=== PATIENT | male | born 1955 | race Caucasian/White ===

== ENCOUNTER 2020-04-21 08:16 | Emergency (ER) | payer BC ==
[~2020-04-21] VITALS: Ht 188 cm; Wt 116.8 kg
[~2020-04-21 08:16] MED LIST: AMLO10TA8 PO; CHLO25TA PO; DIAZ5TAB PO; ESCI20TA PO; ESCI5TAB PO; ESCI5TAB7 PO; ESSENTIAL OILS PO; GABA300C10 PO; IBUP200C8 PO; LISI2.5T PO; LISI40TA PO; METH4TAB2 PO; METH750T2 PO; MULT-717 PO; OXYC1TAB7 PO; TAMS-11 PO; [UNRECOGNIZED DRUG - OTHER] PO
--- NOTE | 2020-04-21 08:41 | NUR ---
md is at the bedside for assessment
[2020-04-21] MEDS ORDERED: SODIUM CHLORIDE FLUSH 10ML SYR IVF ONE (09:00)
[2020-04-21] MEDS ORDERED: DILTIAZEM 5 MG/ML, 5ML ONE (09:00)
[2020-04-21] MEDS ORDERED: ASPIRIN 81 MG TABLET CHEW ONE (09:00)
[2020-04-21] MEDS ORDERED: DILTIAZEM 5 MG/ML, 5ML IVPush ONE (09:00)
[2020-04-21 09:30] LABS: BASOPHILS # (AUTO) 0.03 x10^3/uL (0-0.1); BASOPHILS % (AUTO) 0 % (0-1); EOSINOPHILS # (AUTO) 0.22 x10^3/uL (0-0.4); EOSINOPHILS % (AUTO) 2 % (1-7); LYMPHOCYTES # (AUTO) 1.53 x10^3/uL (1-3.4); LYMPHOCYTES % (AUTO) 17 % (22-44); MD NO; MEAN CORPUSCULAR HEMOGLOBIN 31.3 pg (27.5-34.5); MEAN CORPUSCULAR HGB CONC 33.8 g/dL (33.2-36.2); MEAN PLATELET VOLUME 8.6 fL (7.4-10.4); MONOCYTES # (AUTO) 0.93 x10^3/uL (0.2-0.8); MONOCYTES % (AUTO) 10 % (2-9); NEUTROPHILS # (AUTO) 6.47 x10^3/uL (1.8-6.8); NEUTROPHILS % (AUTO) 71 % (42-75); PLATELET COUNT 237 x10^3/uL (130-400); RED BLOOD COUNT 5.09 x10^6/uL (4.38-5.82)
[2020-04-21] MEDS ORDERED: SODIUM CHLORIDE 0.9%, 500ML IVBOLUS ONE (09:30)
[2020-04-21 09:40] LABS: ALANINE AMINOTRANSFERASE 33 U/L (12-78); ALBUMIN 3.5 g/dL (3.4-5.0); ANION GAP 9 mmol/L (5-15); CHLORIDE 109 mmol/L (98-107)
[2020-04-21 09:45] LABS: ALKALINE PHOSPHATASE 105 U/L (45-117); BILIRUBIN,TOTAL 0.3 mg/dL (0.2-1.0); TOTAL PROTEIN 7.4 g/dL (6.4-8.2); TROPONIN I < 0.015 ng/mL (0.000-0.045)
--- NOTE | 2020-04-21 10:39 | NUR ---
CARDIOLOGY IS AT THE BEDSIDE FOR CONSULT
[2020-04-21] MEDS ORDERED: APIXABAN 5 MG TABLET ONE (10:53)
[2020-04-21] MEDS ORDERED: METOPROLOL TARTRATE 50 MG TAB ONE (10:53)
[2020-04-21] MEDS ORDERED: APIXABAN 5 MG TABLET PO ONE (11:00)
[2020-04-21] MEDS ORDERED: METOPROLOL TARTRATE 50 MG TAB PO ONE (11:00)
[2020-04-21 11:03] VITALS: BP 105/68
[2020-05-30] MEDS ORDERED: METO50TA82 PO (10:54)
[2020-05-30] MEDS ORDERED: APIX5TAB PO (10:54)
[2020-05-30] MEDS ORDERED: PREG150C PO (10:56)
[2020-05-30] MEDS ORDERED: ATOR10TA9 PO (10:57)
== END 2020-04-21 11:05 | disposition home or self-care (01) ==
LOC: ED 09:04
DX: I48.92 Unspecified atrial flutter (principal); I95.9 Hypotension, unspecified; R00.0 Tachycardia, unspecified; I45.10 Unspecified right bundle-branch block; I10 Essential (primary) hypertension
CPT/HCPCS: 36415; 80053; 83735; 84443; 84484; 85025; 93005; 96360; 99284; J7040

== ENCOUNTER 2020-08-01 09:05 | Outpatient (CLI) | payer MEDICARE, BC | END 2020-08-01 23:59 | disposition home or self-care (01) | LOC: CFH 09:05 | PROVIDERS: ATTEND Nurse Practitioner Family | DX: I48.0 Paroxysmal atrial fibrillation (principal); I08.8 Other rheumatic multiple valve diseases; I45.10 Unspecified right bundle-branch block; I10 Essential (primary) hypertension | CPT/HCPCS: 78452; 93017; 93306; A9502; J2785 ==

== ENCOUNTER → 2020-08-01 | Outpatient (CLI) | payer MEDICARE, BC ==
[~2020-08-01] MED LIST changes: +APIX5TAB PO; +ATOR10TA9 PO; +METO50TA82 PO; +PREG150C PO
== END | disposition home or self-care (01) ==
LOC: STAR 11:44
PROVIDERS: ATTEND Anesthesiology
DX: Z01.812 Encounter for preprocedural laboratory examination (principal); Z20.828 Contact with and (suspected) exposure to other viral communicable diseases
CPT/HCPCS: 36415; 87635

== ENCOUNTER 2020-08-05 05:48 | Inpatient (IN) | payer BC, MEDICARE ==
[~2020-08-05] VITALS: Ht 188 cm; Wt 116.0 kg
[2020-08-05] MEDS ORDERED: FENTANYL PF 250 MCG/5ML ONE (06:18)
[2020-08-05] MEDS ORDERED: MIDAZOLAM 1 MG/ML, 2ML ONE (06:18)
[2020-08-05] MEDS ORDERED: GLUC1CAP18 PO (06:24)
[2020-08-05 06:25] VITALS: BP 131/87
[2020-08-05] MEDS ORDERED: ACETAMINOPHEN 500 MG TABLET PO STA (06:30)
[2020-08-05] MEDS ORDERED: CHLORHEXIDINE 15 ML UDC MM STA (06:31)
[2020-08-05] MEDS ORDERED: LACTATED RINGERS 1,000 ML IV ONE (06:31)
[2020-08-05] MEDS ORDERED: LIDOCAINE PF 2%, 5ML ONE (07:10)
[2020-08-05] MEDS ORDERED: hydrALAzine 20 MG/ML, 1ML ONE (07:10)
[2020-08-05] MEDS ORDERED: PROMETHAZINE 25 MG/ML, 1ML IVPush PRN (08:00)
[2020-08-05] MEDS ORDERED: OXYcodone 5 MG/5 ML ORAL.SOL UDC PO PRN (08:00)
[2020-08-05] MEDS ORDERED: METOPROLOL 1 MG/ML, 5ML IV PRN (08:00)
[2020-08-05] MEDS ORDERED: hydrALAzine 20 MG/ML, 1ML IV PRN (08:00)
[2020-08-05] MEDS ORDERED: LORazepam 2 MG/ML, 1ML IVPush PRN (08:00)
[2020-08-05] MEDS ORDERED: LABETALOL 5MG/ML, 20ML IV PRN (08:00)
[2020-08-05] MEDS ORDERED: PROMETHAZINE 25 MG SUPP PR PRN (08:00)
[2020-08-05] MEDS ORDERED: ONDANSETRON 2MG/ML, 2ML IVPush PRN (08:00)
[2020-08-05] MEDS ORDERED: ROPIvacaine/PF 0.2%, 100ML 550 ML (check volume) INJ ONE (08:00)
[2020-08-05] MEDS ORDERED: MEPERIDINE/PF 25MG/0.5ML IVPush PRN (08:00)
[2020-08-05] MEDS ORDERED: HYDROmorphone 1 MG/ML, 1ML INJ IVPush PRN (08:00)
[2020-08-05] MEDS ORDERED: PROPOFOL 10 MG/ML, 20ML ONE (08:43)
[2020-08-05] MEDS ORDERED: ROPIvacaine/PF 0.2%, 20 ML ONE (08:43)
[2020-08-05] MEDS ORDERED: BUPIVACAINE/PF 0.25% ONE (08:43)
[2020-08-05] MEDS ORDERED: SUCCINYLCHOLINE 20 MG/ML, 10ML ONE (08:43)
[2020-08-05] MEDS ORDERED: CEFAZOLIN 1,000 MG ONE (08:43)
[2020-08-05] MEDS ORDERED: ONDANSETRON 2MG/ML, 2ML ONE (08:43)
[2020-08-05] MEDS ORDERED: NEOSTIGMINE 1 MG/ML, 10ML ONE (08:43)
[2020-08-05] MEDS ORDERED: GLYCOPYRROLATE 0.2MG/1ML, 5ML ONE (08:43)
[2020-08-05] MEDS ORDERED: ROCURONIUM 10MG/ML,5ML ONE (08:43)
[2020-08-05] MEDS ORDERED: DEXAMETHASONE 4 MG/ML, 1ML ONE (08:43)
[2020-08-05] MEDS ORDERED: TRANEXAMIC ACID 100 MG/ML, 10ML ONE (09:38)
[2020-08-05] MEDS ORDERED: OXYcodone 5 MG/5 ML ORAL.SOL UDC ONE (10:11)
[2020-08-05] MEDS ORDERED: FENTANYL PF 100 MCG/2ML ONE ×2 (10:11→10:50)
[2020-08-05] MEDS: FENTANYL PF 100 MCG/2ML IV PRN ×3 (10:23→10:50)
[2020-08-05] MEDS ORDERED: KETOROLAC 30 MG/1 ML ONE (11:48)
[2020-08-05] MEDS ORDERED: KETOROLAC 30 MG/1 ML IVPush SCH (12:00)
== END 2020-08-05 15:16 | disposition home or self-care (01) | DRG 469 ==
LOC: ORIP 05:48 → 4NE 12:27
PROVIDERS: ADMIT Orthopaedic Surgery Foot and Ankle Surgery; ATTEND Orthopaedic Surgery Foot and Ankle Surgery
PROC: 0SPJ04Z Removal of Internal Fixation Device from Left Tarsal Joint, Open Approach (ICD-10-PCS; 2020-08-05)
PROC: 0SRG0JZ Replacement of Left Ankle Joint with Synthetic Substitute, Open Approach (ICD-10-PCS; principal; 2020-08-05 07:00)
DX: M19.072 Primary osteoarthritis, left ankle and foot (principal)
CPT/HCPCS: 76000; 93005; G0378; J0690; J1100; J1885; J2250; J2405; J2704; J2710; J2795; J3010; J3490; C1776; J0330; J0360; J7120

== ENCOUNTER 2020-12-16 20:55 | Emergency (ER) | payer BC, MEDICARE ==
[~2020-12-16] VITALS: Ht 188 cm; Wt 124.0 kg
[~2020-12-16 20:55] MED LIST changes: +AMLO-211 PO; -AMLO10TA8 PO; -ESCI20TA PO; +ESCI20TA5 PO; -ESCI5TAB PO; +ESCI5TAB25 PO; +GLUC1CAP18 PO
--- NOTE | 2020-12-16 21:36 | NUR ---
PT HAS HISTORY OF AFLUTTER, PT STATES THE FIRST TIME HE HAD IT HE WAS CARDIOVERTED OUT OF IT AND SINCE THEN HAS BEEN ON MEDICATIONS AND HASNT HAD ANY ISSUES UNTIL NOW. PT STATES HAVING SOB AND DISCOMFORT IN CHEST BEGINING AROUND 1999 TONGIHT AFTER DINNER. PIV ESTABLISHED, ERP AT BEDSIDE FOR EVAL. PT ON ALL MONITORS
[2020-12-16] MEDS ORDERED: DILTIAZEM 5 MG/ML, 5ML ONE (21:55)
[2020-12-16] MEDS ORDERED: DILTIAZEM 5 MG/ML, 5ML IVPush ONE ×2 (22:00→23:00)
[2020-12-16 22:16] LABS: BASOPHILS % (AUTO) 1 % (0-1); EOSINOPHILS % (AUTO) 4 % (1-7); LYMPHOCYTES % (AUTO) 21 % (22-44); MEAN CORPUSCULAR HEMOGLOBIN 31.5 pg (27.5-34.5); MEAN PLATELET VOLUME 8.7 fL (7.4-10.4); MONOCYTES % (AUTO) 10 % (2-9); NEUTROPHILS % (AUTO) 64 % (42-75); PLATELET COUNT 233 x10^3/uL (130-400); RED BLOOD COUNT 5.07 x10^6/uL (4.38-5.82); RED CELL DISTRIBUTION WIDTH 13.2 % (9.4-14.8)
[2020-12-16 22:24] LABS: ALBUMIN 3.6 g/dL (3.4-5.0); ANION GAP 7 mmol/L (5-15); CALCIUM 9.3 mg/dL (8.5-10.1); CHLORIDE 106 mmol/L (98-107); CREATININE 1.09 mg/dL (0.7-1.3)
[2020-12-16 22:33] LABS: TROPONIN I < 0.015 ng/mL (0.000-0.045)
[2020-12-16 22:34] LABS: MD NO
--- NOTE | 2020-12-16 22:45 | NUR ---
pt given 2nd 10 mg cardizem dose at 2243, per dr. adames. pt on all monitors, awaiting lab results, no needs at this time per patient
[2020-12-16] MEDS ORDERED: PROPOFOL 10 MG/ML, 20ML ONE (23:44)
[2020-12-17] MEDS ORDERED: PROPOFOL 10 MG/ML, 20ML IVPush ONE
--- NOTE | 2020-12-17 00:14 | NUR ---
pt succesfully cardioverted, see paper chart for vitals and recovery score. 100 mg propofol administered and 100 mg propofol wasted with aditi muñoz
[2020-12-17 00:17] VITALS: BP 111/69
--- NOTE | 2020-12-17 00:24 | NUR ---
pt states feeling much better, no more sob or any symptoms prior to coming in. pt's driving him home
== END 2020-12-17 00:46 | disposition home or self-care (01) ==
LOC: ED 12-17 00:08
DX: I48.0 Paroxysmal atrial fibrillation (principal); Z20.822 Contact with and (suspected) exposure to COVID-19; R00.2 Palpitations; R42 Dizziness and giddiness; I45.10 Unspecified right bundle-branch block; I11.9 Hypertensive heart disease without heart failure; I48.91 Unspecified atrial fibrillation; E78.00 Pure hypercholesterolemia, unspecified
CPT/HCPCS: 36415; 71045; 80048; 82040; 83735; 83880; 84443; 84484; 85025; 87635; 92960; 93005; 96366; 96374; 96375; 96376; 99285

== ENCOUNTER 2021-02-04 11:10 | Inpatient (IN) | payer BC, MEDICARE ==
[~2021-02-04] VITALS: Ht 188 cm; Wt 122.9 kg
[~2021-02-04 11:10] MED LIST changes: -ESCI20TA5 PO; +ESCI20TA8 PO; -ESCI5TAB25 PO; +ESCI5TAB8 PO; -LISI40TA PO; +LISI40TA9 PO; +METH-640 PO; -METH750T2 PO
[2021-02-04] MEDS ORDERED: HYDROmorphone 1 MG/ML, 1ML INJ ONE (11:42)
[2021-02-04] MEDS: HYDROmorphone 2 MG/ML, 1ML IVPush PRN ×5 (11:44→20:01)
--- NOTE | 2021-02-04 11:53 | NUR ---
PIV PLACED, LABS DRAWN AND COLLECTED BY SUPPLIER MANAGER. PT PROVIDE URINE SAMPLE. UA COLLECTED BY SUPPLIER MANAGER. PT CONNECTED TO MONITORING. CALL LIGHT IN REACH. MEDS ADMIN PER
--- NOTE | 2021-02-04 11:55 | NUR ---
PT PLACED ON OXYGEN FOR SAFETY AFTER PAIN MEDS.
[2021-02-04] MEDS ORDERED: SODIUM CHLORIDE FLUSH 10ML SYR IVF ONE (12:00)
[2021-02-04 12:04] LABS: BASOPHILS % (AUTO) 1 % (0-1); EOSINOPHILS % (AUTO) 0 % (1-7); LYMPHOCYTES % (AUTO) 10 % (22-44); MEAN CORPUSCULAR HEMOGLOBIN 31.6 pg (27.5-34.5); MEAN CORPUSCULAR HGB CONC 34.9 g/dL (33.2-36.2); MEAN PLATELET VOLUME 8.7 fL (7.4-10.4); MONOCYTES % (AUTO) 10 % (2-9); NEUTROPHILS % (AUTO) 78 % (42-75); PLATELET COUNT 213 x10^3/uL (130-400); RED BLOOD COUNT 5.29 x10^6/uL (4.38-5.82); RED CELL DISTRIBUTION WIDTH 13.6 % (9.4-14.8)
[2021-02-04 12:04] LABS: MICROSCOPIC AUTO
[2021-02-04 12:05] LABS: MD NO
[2021-02-04 12:32] LABS: ALANINE AMINOTRANSFERASE 27 U/L (12-78); ALBUMIN 3.5 g/dL (3.4-5.0); ANION GAP 8 mmol/L (5-15); CALCIUM 8.9 mg/dL (8.5-10.1); CHLORIDE 104 mmol/L (98-107); CREATININE 0.99 mg/dL (0.7-1.3)
[2021-02-04 12:35] LABS: ALKALINE PHOSPHATASE 84 U/L (45-117); BILIRUBIN,TOTAL 1.8 mg/dL (0.2-1.0); TOTAL PROTEIN 7.6 g/dL (6.4-8.2)
--- NOTE | 2021-02-04 12:35 | NUR ---
SECOND PIV PLACE, D/T FIRST PIV FLOW IS SLUGGISH.
--- NOTE | 2021-02-04 12:49 | NUR ---
PT AT CT
[2021-02-04] MEDS ORDERED: OMNIPAQUE 350 MG/ML, 100ML BOTTLE ONE (12:54)
--- NOTE | 2021-02-04 13:17 | NUR ---
PT BACK FROM CT. PT RESTING COMFORTABLY ON GURNEY. SHARRI. AT BEDSIDE.
--- NOTE | 2021-02-04 13:24 | NUR ---
ALL RESULTS ARE BACK AT THIS TIME. CHART UP FOR RECHECK.
--- NOTE | 2021-02-04 13:28 | NUR ---
ERP AT BEDSIDE TO UPDATE PT ON POC. PT TO BE ADMIT.
[2021-02-04] MEDS ORDERED: PIPERACILLIN/TAZO/PMX 4.5GM 100 ML IVPB ONE (13:30)
--- NOTE | 2021-02-04 13:49 | NUR ---
MED REQUESTED FROM PHARMACY. ERMD STATES NO NEED FOR BLOOD CX PRIOR TO ABX ADMIN.
--- NOTE | 2021-02-04 13:55 | NUR ---
HOSPITALIST AT BEDSIDE.
[2021-02-04] MEDS ORDERED: SODIUM CHLORIDE 0.9% 1,000 ML IV ONE (14:00)
[2021-02-04] MEDS ORDERED: SODIUM CHLORIDE 0.9% 1,000ML IVBOLUS ONE ×2 (14:00→14:30)
[2021-02-04] MEDS ORDERED: SODIUM CHLORIDE FLUSH 10ML SYR IVF PRN (14:00)
--- NOTE | 2021-02-04 14:08 | NUR ---
HOSPITALIST ORDERED BLOOD CULTURE X2. LAB AT BEDSIDE.
--- NOTE | 2021-02-04 14:17 | NUR ---
TASK RN: IV FLUIDS INFUSING PER MAR.
--- NOTE | 2021-02-04 14:20 | NUR ---
REPORT GIVEN TO OH SALINAS. PT RTG TO ROOM [id number]
[2021-02-04] MEDS ORDERED: PROMETHAZINE 25 MG/ML, 1ML IM PRN (14:30)
[2021-02-04] MEDS ORDERED: DOCUSATE 100 MG CAPSULE PO PRN (14:30)
[2021-02-04] MEDS ORDERED: MELATONIN 5 MG TABLET PO PRN (14:30)
[2021-02-04] MEDS ORDERED: POLYETHYLENE GLYCOL 17 GM PACKET PO PRN (14:30)
[2021-02-04] MEDS ORDERED: hydrALAzine 20 MG/ML, 1ML IVPush PRN (14:30)
[2021-02-04] MEDS ORDERED: LABETALOL 5MG/ML, 20ML IVPush PRN (14:30)
[2021-02-04] MEDS ORDERED: ONDANSETRON 2MG/ML, 2ML IVPush PRN (14:30)
[2021-02-04] MEDS ORDERED: PIPERACILLIN/TAZO/PMX 3.375GM 50 ML IV SCH (14:30)
[2021-02-04] MEDS ORDERED: CYCLOBENZAPRINE 10 MG TABLET PO PRN (14:30)
--- NOTE | 2021-02-04 14:55 | NUR ---
SPOKE WITH PHARMACY ABOUT ABX, WILL PROCESS AND SEND.
--- NOTE | 2021-02-04 15:04 | NUR ---
Report from BRAD Robles.
--- NOTE | 2021-02-04 15:09 | NUR ---
REPORT GIVEN TO CORINA SALINAS. PT RTG TO ROOM 503. RN AWARE OF ABX TO BE RECEIVED FROM PHARMACY.
--- NOTE | 2021-02-04 15:12 | NUR ---
PHARMACY NOTIFIED TO SEND ZOSYN TO ROOM 503
[2021-02-04] MEDS ORDERED: POTASSIUM CHLORIDE 40 MEQ in SODIUM CHLORIDE 0.9% 500 ML IV ONE (16:00)
[2021-02-04] MEDS: ENOXAPARIN 40 MG/0.4 ML SQ SCH (16:47)
[2021-02-04] MEDS: PIPERACILLIN/TAZO/PMX 3.375GM 50 ML IV SCH ×2 (17:16→21:30)
[2021-02-04 17:23] VITALS: BP 152/95
[2021-02-04] MEDS: PREGABALIN 150 MG CAPSULE PO SCH (20:01)
[2021-02-04] MEDS: METOPROLOL TARTRATE 50 MG TAB PO SCH (20:01)
[2021-02-04 20:20] VITALS: BP 128/84
[2021-02-04] MEDS ORDERED: ATORVASTATIN 10 MG TABLET PO SCH (21:00)
[2021-02-04] MEDS: POTASSIUM CHLORIDE 20 MEQ in LACTATED RINGERS 1,000 ML IV SCH (21:30)
[2021-02-05] MEDS: HYDROmorphone 2 MG/ML, 1ML IVPush PRN ×8 (02:39→21:36)
[2021-02-05 02:41] VITALS: BP 109/71
[2021-02-05] MEDS: PIPERACILLIN/TAZO/PMX 3.375GM 50 ML IV SCH ×4 (03:05→21:35)
[2021-02-05 05:00] LABS: BASOPHILS % (AUTO) 1 % (0-1); EOSINOPHILS % (AUTO) 3 % (1-7); LYMPHOCYTES % (AUTO) 11 % (22-44); MEAN CORPUSCULAR HEMOGLOBIN 31.6 pg (27.5-34.5); MEAN CORPUSCULAR HGB CONC 34.4 g/dL (33.2-36.2); MEAN PLATELET VOLUME 8.7 fL (7.4-10.4); MONOCYTES % (AUTO) 11 % (2-9); NEUTROPHILS % (AUTO) 75 % (42-75); PLATELET COUNT 185 x10^3/uL (130-400); RED CELL DISTRIBUTION WIDTH 13.5 % (9.4-14.8)
[2021-02-05 05:15] LABS: MD NO
[2021-02-05] MEDS: POTASSIUM CHLORIDE 20 MEQ in LACTATED RINGERS 1,000 ML IV SCH (06:04)
[2021-02-05 07:33] VITALS: BP 121/76
[2021-02-05] MEDS: TAMSULOSIN 0.4 MG CAP.ER.24H PO SCH (08:45)
[2021-02-05] MEDS: PREGABALIN 150 MG CAPSULE PO SCH ×2 (08:45→20:10)
[2021-02-05] MEDS: ESCITALOPRAM 10MG TABLET PO SCH (08:45)
[2021-02-05] MEDS: SENNA/DOCUSATE TABLET PO SCH (08:45)
[2021-02-05] MEDS: METOPROLOL TARTRATE 50 MG TAB PO SCH ×2 (08:45→20:11)
[2021-02-05 12:56] VITALS: BP 123/79
[2021-02-05] MEDS: ENOXAPARIN 40 MG/0.4 ML SQ SCH (16:00)
[2021-02-05 20:03] VITALS: BP 125/82
[2021-02-06 01:00] VITALS: BP 114/68
[2021-02-06] MEDS: HYDROmorphone 2 MG/ML, 1ML IVPush PRN ×6 (01:00→20:27)
[2021-02-06] MEDS: PIPERACILLIN/TAZO/PMX 3.375GM 50 ML IV SCH ×4 (04:48→22:39)
[2021-02-06 07:00] VITALS: BP 134/87
[2021-02-06] MEDS: TAMSULOSIN 0.4 MG CAP.ER.24H PO SCH (08:53)
[2021-02-06] MEDS: SENNA/DOCUSATE TABLET PO SCH (08:53)
[2021-02-06] MEDS: ESCITALOPRAM 10MG TABLET PO SCH (08:53)
[2021-02-06] MEDS: METOPROLOL TARTRATE 50 MG TAB PO SCH ×2 (08:54→20:28)
[2021-02-06] MEDS: PREGABALIN 150 MG CAPSULE PO SCH ×2 (08:54→20:28)
[2021-02-06] MEDS: ENOXAPARIN 40 MG/0.4 ML SQ SCH (16:00)
[2021-02-06 16:28] VITALS: BP 135/85
[2021-02-06 19:10] VITALS: BP 132/84
[2021-02-06 20:19] VITALS: BP 136/82
[2021-02-07 01:29] VITALS: BP 123/85
[2021-02-07] MEDS: HYDROmorphone 2 MG/ML, 1ML IVPush PRN ×6 (01:39→22:23)
[2021-02-07] MEDS: PIPERACILLIN/TAZO/PMX 3.375GM 50 ML IV SCH ×4 (05:14→22:23)
[2021-02-07 07:37] VITALS: BP 132/80
[2021-02-07] MEDS: SENNA/DOCUSATE TABLET PO SCH (08:59)
[2021-02-07] MEDS: PREGABALIN 150 MG CAPSULE PO SCH ×2 (08:59→20:28)
[2021-02-07] MEDS: ESCITALOPRAM 10MG TABLET PO SCH (08:59)
[2021-02-07] MEDS: TAMSULOSIN 0.4 MG CAP.ER.24H PO SCH (09:00)
[2021-02-07] MEDS: METOPROLOL TARTRATE 50 MG TAB PO SCH ×2 (09:00→20:28)
[2021-02-07 11:03] LABS: BASOPHILS % (AUTO) 1 % (0-1); EOSINOPHILS % (AUTO) 5 % (1-7); LYMPHOCYTES % (AUTO) 14 % (22-44); MEAN CORPUSCULAR HEMOGLOBIN 31.7 pg (27.5-34.5); MEAN CORPUSCULAR HGB CONC 34.8 g/dL (33.2-36.2); MONOCYTES % (AUTO) 13 % (2-9); NEUTROPHILS % (AUTO) 68 % (42-75); PLATELET COUNT 233 x10^3/uL (130-400); RED CELL DISTRIBUTION WIDTH 13.1 % (9.4-14.8)
[2021-02-07 11:04] LABS: MD NO
[2021-02-07 11:13] LABS: ALBUMIN 3.2 g/dL (3.4-5.0); ANION GAP 6 mmol/L (5-15); CHLORIDE 101 mmol/L (98-107); CREATININE 0.93 mg/dL (0.7-1.3)
[2021-02-07 12:27] VITALS: BP 120/76
[2021-02-07] MEDS: ENOXAPARIN 40 MG/0.4 ML SQ SCH (16:00)
[2021-02-07 18:51] VITALS: BP 133/89
[2021-02-08 00:47] VITALS: BP 128/68
[2021-02-08] MEDS: HYDROmorphone 2 MG/ML, 1ML IVPush PRN ×4 (02:11→12:03)
[2021-02-08] MEDS: PIPERACILLIN/TAZO/PMX 3.375GM 50 ML IV SCH ×2 (04:33→10:22)
[2021-02-08] MEDS: ESCITALOPRAM 10MG TABLET PO SCH (08:23)
[2021-02-08] MEDS: SENNA/DOCUSATE TABLET PO SCH (08:24)
[2021-02-08] MEDS: PREGABALIN 150 MG CAPSULE PO SCH (08:24)
[2021-02-08] MEDS: TAMSULOSIN 0.4 MG CAP.ER.24H PO SCH (08:24)
[2021-02-08] MEDS: METOPROLOL TARTRATE 50 MG TAB PO SCH (08:24)
[2021-02-08 08:43] VITALS: BP 126/90
[2021-02-08] MEDS ORDERED: METR500T PO (11:30)
[2021-02-08] MEDS ORDERED: OXYC-302 PO (11:30)
[2021-02-08] MEDS ORDERED: CIPR500T87 PO (11:30)
[2021-02-08 15:55] VITALS: BP 112/76
== END 2021-02-08 16:22 | disposition home or self-care (01) | DRG 871 ==
LOC: ED 11:37 → EDIP 13:37 → 3N 14:01 → EDIP 14:27 → 5SO 15:21 → 4WST 02-06 10:02 → DCLOUNGE 02-08 16:12
PROVIDERS: ADMIT Internal Medicine; ATTEND Family Medicine
PROC: 5A09357 Assistance with Respiratory Ventilation, Less than 24 Consecutive Hours, Continuous Positive Airway Pressure (ICD-10-PCS; principal; 2021-02-05)
PROC: 5A09357 Assistance with Respiratory Ventilation, Less than 24 Consecutive Hours, Continuous Positive Airway Pressure (ICD-10-PCS; 2021-02-06)
PROC: 5A09357 Assistance with Respiratory Ventilation, Less than 24 Consecutive Hours, Continuous Positive Airway Pressure (ICD-10-PCS; 2021-02-07)
PROC: 5A09357 Assistance with Respiratory Ventilation, Less than 24 Consecutive Hours, Continuous Positive Airway Pressure (ICD-10-PCS; 2021-02-08)
DX: A41.9 Sepsis, unspecified organism (principal); K65.9 Peritonitis, unspecified; K57.32 Diverticulitis of large intestine without perforation or abscess without bleeding; I48.20 Chronic atrial fibrillation, unspecified; E87.6 Hypokalemia; E66.9 Obesity, unspecified; E78.5 Hyperlipidemia, unspecified; F32.9 Major depressive disorder, single episode, unspecified; F41.1 Generalized anxiety disorder; M54.5 Low back pain; G89.29 Other chronic pain; I10 Essential (primary) hypertension; I48.0 Paroxysmal atrial fibrillation; Z68.34 Body mass index [BMI] 34.0-34.9, adult; Z87.442 Personal history of urinary calculi
CPT/HCPCS: 36415; 74177; 80053; 80069; 81001; 83036; 83605; 83690; 83735; 85025; 87040; 93005; 99285; G0378; J1170; J1650; J2543; J3480; Q9967; J7030; J7040; J7120